=== PATIENT | male | born 1975 ===

== ENCOUNTER 2017-03-09 08:40 | Day surgery (SDC) | payer BC ==
[2017-03-09] MEDS ORDERED: Lidocaine 1% INJ* 10 MG/ML 30 ML SDV ONE (08:51)
[2017-03-09] MEDS ORDERED: ceFAZolin 2 GM PREMIX(*) 2 GM/50 ML BAG IVPB ONE (09:24)
[2017-03-09] MEDS ORDERED: Bupivacaine 0.25% SDV* 30 ML ONE (09:48)
[2017-03-09 10:47] VITALS: BP 122/85
--- NOTE | 2017-03-10 02:42 | OP ---
DATE OF OPERATION: 03/09/17 - [facility] DATE OF : 73 SURGEON: Emigdio Tripathi MD SURFACE GRINDER: ARABELLA Guerrero ANESTHESIOLOGIST: None. ANESTHESIA: Local only with digital block performed via 1% lidocaine with bicarbonate followed by Marcaine 0.25% plain. PRE-OP DIAGNOSIS: Left middle finger soft tissue closed mallet finger. POST-OP DIAGNOSIS: Left middle finger soft tissue closed mallet finger. OPERATIVE PROCEDURE: Closed treatment of left middle mallet finger with distal interphalangeal joint pinning. INDICATIONS: Blaise is a 41-year-old male who had a right middle finger mallet finger treated a few years back with full-time extension splinting, after which he developed a significant lag and then underwent pinning and splinting and achieved a very nice result. He now comes in a few years later with a left middle finger closed soft tissue mallet finger. We talked about treatment options, risks, and benefits. He wanted to go straight to pinning. He understands there is a risk of pin tract infection. He elected to proceed. ESTIMATED BLOOD LOSS: None. COMPLICATIONS: None. FINDINGS: As expected. DESCRIPTION OF PROCEDURE: Marcela was seen in the preoperative holding area and the correct side, site, and procedure were identified. We had a time-out. Then I performed a digital block to the left middle finger with 1% plain lidocaine with bicarbonate. We then came back to the operating room, where the arm was prepped and draped in the usual fashion after the finger was pre- scrubbed. He did get a dose of antibiotics. We then had a formal time-out. I augmented the digital block with another 5 to 10 mL of 0.25% Marcaine. I then brought in the mini C-arm. I marked out the trajectory of my pin. A 0.045 K-wire was selected and was placed longitudinally beginning in the tip of the distal phalanx and crossing the DIP joint coming out the volar cortex of the middle phalanx. The DIP joint was pinned in just a few degrees of hyperextension. With the pin placed, I went ahead and clipped and bent the pin. The pin was dressed with Xeroform with a 1-inch Reanna and then a Coban and dressing. He was then taken to the recovery room in stable condition. [id number]/[facility] #: [id number] RAVEN
--- NOTE | 2017-03-15 14:58 | RAD ---
INDICATION: Left middle finger, operative reduction. COMPARISON: Comparison is made with a prior x-ray study of the left middle finger from February 27, 2017. TECHNIQUE: 11 seconds of intermittent fluoroscopic guidance were provided and 16 spot films of the left middle finger were obtained in the operating room. FINDINGS: The films demonstrate placement of a K wire spanning the distal interphalangeal joint. The bones are in normal alignment. IMPRESSION: INTRAOPERATIVE CONTROL FILMS. CPT II Codes: 6045F
== END 2017-03-09 10:45 | disposition home or self-care (01) ==
LOC: OREAST 08:40
PROVIDERS: ATTEND Orthopaedic Surgery Hand Surgery
DX: M20.012 Mallet finger of left finger(s) (principal)
CPT/HCPCS: 76000; C1776; J0690; J2001